=== PATIENT | male | born 1965 | race African-American/Black ===

== ENCOUNTER 2017-04-27 07:42 | Emergency (ER) | payer OTHER ==
[~2017-04-27] VITALS: Ht 177.8 cm; Wt 93.0 kg
[2017-04-27] MEDS ORDERED: KETOROLAC 60MG/2ML VIAL IM ONE (10:30)
[2017-04-27 10:34] VITALS: BP 160/74
== END 2017-04-27 10:55 | disposition home or self-care (01) ==
LOC: ER 08:17
DX: S39.012A Strain of muscle, fascia and tendon of lower back, initial encounter (principal); F17.210 Nicotine dependence, cigarettes, uncomplicated; X58.XXXA Exposure to other specified factors, initial encounter; Y93.89 Activity, other specified; Y92.89 Other specified places as the place of occurrence of the external cause; Y99.8 Other external cause status
CPT/HCPCS: 96372; 99283; J1885